=== PATIENT | female | born 1985 | race Two or more races ===

== ENCOUNTER 2022-12-25 14:56 | Emergency (ER) | payer OTHER ==
[~2022-12-25] VITALS: Ht 157.5 cm; Wt 67.6 kg
== END 2022-12-25 19:26 | disposition home or self-care (01) ==
LOC: ER 14:56
DX: H60.92 Unspecified otitis externa, left ear (principal); J02.9 Acute pharyngitis, unspecified; Z20.822 Contact with and (suspected) exposure to COVID-19